=== PATIENT | female | born 1945 ===

== ENCOUNTER 2025-07-22 12:49 | Outpatient (RCR) | payer OTHER, SELFPAY | END 2025-07-22 23:59 | disposition home or self-care (01) | LOC: RPT 12:49 | PROVIDERS: ATTENDING PHYSICIAN Obstetrics & Gynecology; FAMILY PHYSICIAN Internal Medicine | DX: N81.11 Cystocele, midline (principal); N81.2 Incomplete uterovaginal prolapse; N95.8 Other specified menopausal and perimenopausal disorders; N39.3 Stress incontinence (female) (male); Z73.6 Limitation of activities due to disability; M62.81 Muscle weakness (generalized) | CPT/HCPCS: 97112; 97163; 97530 ==

== ENCOUNTER 2025-08-13 12:50 | Outpatient (RCR) | payer OTHER, SELFPAY | END 2025-08-13 23:59 | disposition home or self-care (01) | LOC: RPT 12:50 | PROVIDERS: ATTENDING PHYSICIAN Obstetrics & Gynecology; FAMILY PHYSICIAN Internal Medicine | DX: N81.11 Cystocele, midline (principal); N95.8 Other specified menopausal and perimenopausal disorders; N39.3 Stress incontinence (female) (male); Z73.6 Limitation of activities due to disability; M62.81 Muscle weakness (generalized); N81.2 Incomplete uterovaginal prolapse | CPT/HCPCS: 97110; 97112; 97530 ==

== ENCOUNTER 2025-09-23 07:49 | Outpatient (RCR) | payer OTHER, SELFPAY | END 2025-09-23 23:59 | disposition home or self-care (01) | LOC: RPT 07:49 | PROVIDERS: ATTENDING PHYSICIAN Obstetrics & Gynecology; FAMILY PHYSICIAN Internal Medicine | DX: N81.11 Cystocele, midline (principal); N95.8 Other specified menopausal and perimenopausal disorders; N39.3 Stress incontinence (female) (male); Z73.6 Limitation of activities due to disability; M62.81 Muscle weakness (generalized); N81.2 Incomplete uterovaginal prolapse | CPT/HCPCS: 97110; 97112; 97530 ==

== ENCOUNTER 2025-10-15 10:38 | Outpatient (RCR) | payer OTHER, SELFPAY | END 2025-10-15 23:59 | disposition home or self-care (01) | LOC: RPT 10:38 | PROVIDERS: ATTENDING PHYSICIAN Obstetrics & Gynecology; FAMILY PHYSICIAN Internal Medicine | DX: N81.11 Cystocele, midline (principal); N95.8 Other specified menopausal and perimenopausal disorders; N39.3 Stress incontinence (female) (male); Z73.6 Limitation of activities due to disability; M62.81 Muscle weakness (generalized); N81.2 Incomplete uterovaginal prolapse | CPT/HCPCS: 97112; 97530 ==

== ENCOUNTER 2025-10-31 13:02 | Outpatient (RCR) | payer OTHER, SELFPAY | END 2025-10-31 23:59 | disposition home or self-care (01) | LOC: RPT 13:02 | PROVIDERS: ATTENDING PHYSICIAN Obstetrics & Gynecology; FAMILY PHYSICIAN Internal Medicine | DX: N81.11 Cystocele, midline (principal); N95.8 Other specified menopausal and perimenopausal disorders; N39.3 Stress incontinence (female) (male); Z73.6 Limitation of activities due to disability; M62.81 Muscle weakness (generalized); N81.2 Incomplete uterovaginal prolapse | CPT/HCPCS: 97112; 97140; 97530 ==